=== PATIENT | male | born 1960 | race Caucasian/White ===

== ENCOUNTER 2024-11-07 19:42 | Emergency (ER) | payer SELFPAY ==
--- NOTE | 2024-11-07 20:17 | PD.EDMEDCL ---
ED Medical Clearance RME/HPI General Stated complaint: MEDICAL CLEARANCE Time Seen by Provider: 11/07/24 20:01 Arrival date/time: 11/07/24 19:42 RME / HPI RME / HPI Narrative: 64-year-old female patient was brought in by law enforcement for possible skin tear left elbow after refusing arrest with law enforcement. Was brought in for medical clearance. Patient is refusing to be examined or refusing to answer questions. Patient is also refusing vital signs. Review of Systems Review of Systems ROS Unobtainable: other (Refused to answer questions) ED Exam Narrative Physical exam: Refused to be examined and vital signs Course Quality Measures none Medical Clearance MDM Narrative MDM Narrative:: Patient is refusing to be examined refusing vital signs Medically cleared Patient data External records reviewed:: None Clinical information provided by:: none Social determinants that could affect healthcare access:: none Patient has the following chronic illnesses:: None How is presenting disease/condition affected by chronic disease/condition?: no chronic disease (Unknown) Evaluation data The following diagnostics were reviewed and interpreted by me:: other (specify) Lab and/or radiology exams considered but not ordered:: None Interpretation Summary: None Medications / Prescriptions Medications or Prescriptions considered but not ordered:: None Medication administrations:: None Consultations Consultation(s) initiated? (list below): No Diagnosis Medical Clearance Differential Diagnosis: other (Medical clearance for incarceration, elbow laceration) Most likely diagnosis given after review of the tests above:: Medical clearance for incarceration Admission Indicated Admission indicated?: not indicated Admission Request Was there a request for admission?: No Disposition Plan Disposition Plan: other (specify) Discharge Plan Plan Patient Disposition: Longterm/Court/Law Problem List Clinical Impression: Medical clearance for incarceration Patient/Caregiver Discharge Instructions Additional Instructions: Patient is refusing to be examined, refusing vital signs Print Language: Turkish Stand Alone Forms: Marnie Award Info., Patient Portal Info Letter
== END 2024-11-08 00:03 ==
LOC: SERX 20:42
PROVIDERS: Emergency Provider Emergency Medicine
DX: Z02.89 Encounter for other administrative examinations (principal)